=== PATIENT | female | born 1970 | race Caucasian/White ===

== ENCOUNTER 2019-11-27 08:03 | Inpatient (IN) | payer OTHER ==
[~2019-11-27] VITALS: Ht 170.2 cm; Wt 122.5 kg
--- NOTE | 2019-11-27 08:05 | NUR ---
PT BIBRA 102 FROM HOME C/O L KNEE AND ANKLE INJURY, PER PT "I PASSED OUT AND FELL" PT IS AAOX4, NOT IN RESPIRATORY DISTRESS, HOOKED TO CROP DUSTER, KEPT RESTED AND COMFORTABLE, WILL CONTINUE TO MONITOR.
--- NOTE | 2019-11-27 08:10 | NUR ---
PT SEEN AND EXAMINED BY .
[2019-11-27] MEDS ORDERED: ONDANSETRON HCL/PF 4 MG/2 ML VIAL ONE (08:17)
[2019-11-27] MEDS ORDERED: HYDROMORPHONE 1 MG/1 ML DISP.SYRIN ONE ×4 (08:17→11:51)
--- NOTE | 2019-11-27 08:20 | NUR ---
BLOOD DRAWN AND SENT TO LAB.
[2019-11-27 08:30] LABS: BASOPHILS # (AUTO) 0.1 /CMM (0.0-0.2); EOSINOPHILS % (AUTO) 0.9 % (0.0-6.0); HEMATOCRIT 40 % (33-45); HEMOGLOBIN 12.9 g/dL (11.5-14.8); LYMPHOCYTES # (AUTO) 1.4 /CMM (0.8-4.8); LYMPHOCYTES % (AUTO) 15.7 % (20.0-44.0); MEAN CORPUSCULAR HGB CONC 33 g/dl (31.0-36.0); MEAN CORPUSCULAR VOLUME 88 fL (82-100); MONOCYTES # (AUTO) 0.6 /CMM (0.1-1.30); MONOCYTES % (AUTO) 7.1 % (2.0-12.0); NEUTROPHILS # (AUTO) 6.5 /CMM (1.8-8.9); NEUTROPHILS % (AUTO) 75.3 % (43.0-81.0); PLATELET COUNT (AUTO) 167 /CMM (150-450); WHITE BLOOD COUNT (AUTO) 8.7 K/uL (4.3-11.0)
[2019-11-27] MEDS ORDERED: IV NS 0.9% 1,000 ML BAG IV ONE (08:30)
[2019-11-27] MEDS ORDERED: HYDROMORPHONE INJ 2 MG/ML DISP.SYRIN IV ONE (08:30)
[2019-11-27] MEDS ORDERED: ONDANSETRON HCL/PF 4 MG/2 ML VIAL IVP ONE (08:30)
--- NOTE | 2019-11-27 08:31 | NUR ---
[employer] LETTER CARRIER AT BEDSIDE FOR XRAY.
[2019-11-27 08:36] LABS: CALCIUM, SERUM 8.8 mg/dL (8.5-10.1); CARBON DIOXIDE 22 mmol/L (21-32); CHLORIDE 106 mmol/L (98-107); GLUCOSE 115 mg/dL (74-106); POTASSIUM 4.4 mmol/L (3.5-5.1); SODIUM SERUM 139 mmol/L (136-145); UREA NITROGEN, BLOOD 9 mg/dL (7-18)
[2019-11-27] MEDS ORDERED: HYDROMORPHONE 1 MG/1 ML DISP.SYRIN IV ONE ×3 (09:00→12:00)
--- NOTE | 2019-11-27 09:06 | NUR ---
CALLED [facility] [phone] ITS [facility].
[2019-11-27] MEDS ORDERED: HYDR4TAB57 PO (09:23)
[2019-11-27] MEDS ORDERED: CYCL10TA9 PO (09:23)
[2019-11-27] MEDS ORDERED: TOPI200C6 PO (09:23)
[2019-11-27] MEDS ORDERED: VENL37.591 PO (09:23)
[2019-11-27] MEDS ORDERED: ERGO500014 PO (09:23)
[2019-11-27] MEDS ORDERED: INDO75CA3 PO (09:23)
[2019-11-27] MEDS ORDERED: GABA-534 PO (09:23)
[2019-11-27] MEDS ORDERED: TRAZ150T75 PO (09:23)
[2019-11-27] MEDS ORDERED: PROP120C2 PO (09:23)
[2019-11-27] MEDS ORDERED: GABA600T12 PO (09:23)
--- NOTE | 2019-11-27 09:30 | NUR ---
CALLED [facility] [phone] ITS [facility].
--- NOTE | 2019-11-27 09:40 | NUR ---
PT IS WHEELED TO CT SCAN VIA [facility].
--- NOTE | 2019-11-27 09:59 | NUR ---
CECILIA SINGH AT BEDSIDE FOR EVAL.
--- NOTE | 2019-11-27 11:39 | NUR ---
called nursing supervisor assembly and packing requested for med surg bed.
--- NOTE | 2019-11-27 12:13 | NUR ---
324-[address] [facility] [place]
--- NOTE | 2019-11-27 12:19 | NUR ---
REPORT GIVEN TO VICENTA LOPES FOR WALE.
[2019-11-27 12:45] VITALS: BP 113/71
--- NOTE | 2019-11-27 12:56 | NUR ---
RN ADMITTING NOTE Patient arrived from ER, A/O x4, showing of acute distress or SOB, saturating 94-96% on 2L NC. IV line in the right hand #20g is clean and intact, flushing well. Vital signs BP 113/71 HR 64 RR 18 T 98.1. Patient is complaining of 6/10 pain in the left lower leg. Splint and PARKER wrap bandage noted on left lower leg. MD has been notified that patient has arrived on the floor and I asked MD if patient needs gupta catheter insertion. Awaiting for response. Bed is in lowest position, side rails x3 in upright position, call light is within reach, fall safety and aspiration precautions enforced. Will continue with plan of care.
--- NOTE | 2019-11-27 13:44 | NUR ---
RN NOTE Patient is expected to leave for surgery at 1430. Consents have been signed and placed in chart. Spoke with Calvin YADAV from Surgery, she stated that it is up to Dr. Stephens if he decides to insert Galvez Catheter for the patient. Will follow up after patient is back from surgery.
[2019-11-27] MEDS ORDERED: GLYCOPYRROLATE 0.2 MG/ML VIAL ONE (14:34)
[2019-11-27] MEDS ORDERED: ANESTHESIA TRAY IN PYXIS 1 EA TRAY MC ONE (15:19)
[2019-11-27] MEDS ORDERED: BUPIVACAINE 0.5 % PF 150 MG/30 ML VIAL ONE (15:20)
[2019-11-27] MEDS ORDERED: BACITRACIN 50000 UNITS/VIAL ONE ×2 (15:20→16:38)
[2019-11-27] MEDS ORDERED: HYDROMORPHONE INJ 2 MG/ML DISP.SYRIN ONE (15:54)
[2019-11-27] MEDS ORDERED: IV NS 0.9% 1,000 ML IV PRN (16:57)
[2019-11-27] MEDS ORDERED: ACETAMINOPHEN 325 MG TABLET PO PRN (17:00)
[2019-11-27] MEDS ORDERED: Z GUARD REMEDY 2 OZ OINT TP PRN (17:00)
--- NOTE | 2019-11-27 19:14 | NUR ---
RN CLOSING NOTE Patient arrived from surgery at 1915. A/O x2-3, patient dozes in and out of sleep, arousable to touch. When awake, patient is able to respond to questions. Viital signs 112/40, HR 100, T 98.7 O2 96% on 4L NC. Left lower leg splint noted, elevated on pillow. security shift supervisor RN Minerva at the bedside receiving report from OR nurses and change of shift report. No Galvez catheter inserted per Dr. Stephens. Bed is in lowest position, side rails x3 in upright position, call light is within reach, fall, safety, and aspiration precautions enforced. Endorsed to night guard.
--- NOTE | 2019-11-27 19:15 | NUR ---
MS/RN OPENING NOTES: PT. ARRIVED TO THE UNIT VIA GURNEY FROM OR. S/P LEFT TIB ORIF. ACCOMPANIED BY NIC YADAV. PT IS A/OX4. VERY DROWSY YET AROUSABLE WHEN TALKED TO. VERBALLY RESPONSIVE AND ABLE TO MAKE NEEDS KNOWN. ON 2 L OF OXYGEN VIA NC SATURATING AT 95%. NO SOB NOTED, BREATHING EVEN AND UNLABORED. NO S/S OF ACUTE DISTRESS. NO C/O PAIN AT THIS TIME. INITIAL VS TAKEN. 112/40 HR: 100 TEMP: 98. HAS AN ORDER FOR CONTINUOUS PULSE OX MONITORING. CALLED RT DAILY TO BRING IN PULSE OX MACHINE. LEFT EXTREMITY ELEVATED. GOOD CAP REFILL <3. PLACED ON REG. DIET. HOB ELEVATED. IV SITE PRESENT ON THE RIGHT WRIST #20G. SAFETY MEASURES IN PLACE. BED IN LOW, LOCKED POSITION WITH SR UP X2. CALL LIGHT WITHIN REACH. WILL CONTINUE TO MONITOR ACCORDINGLY.
[2019-11-27 19:30] VITALS: BP 112/40
[2019-11-27 20:00] VITALS: BP 96/61
--- NOTE | 2019-11-27 20:00 | NUR ---
MS/RN NOTES: REQUESTED FOR STAT CONTINUOUS PULSE OX. PER RT, "WE DON'T HAVE AN AVAILABLE MACHINE. USE THE VITALS MACHINE FOR NOW". PT IS SATURATING AT 96-97% ON 4L OF OXYGEN VIA NC. AROUSABLE AND VERBALLY RESPONSIVE. VS MACHINE AT BEDSIDE FOR CONTINUOUS PULSE OX.
[2019-11-27 20:30] VITALS: BP 125/72
[2019-11-27 20:41] VITALS: BP_SYST 185; BP_SYST 96; BP_DIAS 113; BP_DIAS 61
[2019-11-27] MEDS: TRAZODONE 50 MG TABLET PO SCH (21:11)
[2019-11-27] MEDS: TOPIRAMATE 100 MG TABLET PO SCH (21:11)
[2019-11-27] MEDS ORDERED: KETOROLAC TROMETHAMINE INJ 30 MG/ML VIAL IV PRN (22:30)
[2019-11-27] MEDS: IV LR 1000 ML 1,000 ML IV PRN (22:36)
--- NOTE | 2019-11-28 | NUR ---
MS/RN NOTES: PT. REFUSED PROPRANOLOL 20 MG PO. EXPLAINED TO PT RISKS AND BENEFITS, STILL INSISTED ON REFUSING. PER PT "I WANNA SLEEP PLEASE" . WILL CONTINUE TO MONITOR. PT IS STABLE VSS.
[2019-11-28] MEDS: CEFAZOLIN 2 GM in IV D5W 100 ML IV SCH ×2 (01:07→04:29)
[2019-11-28] MEDS: ONDANSETRON HCL/PF 4 MG/2 ML VIAL IVP PRN ×3 (03:04→21:15)
--- NOTE | 2019-11-28 03:04 | NUR ---
MS/RN NOTES: PT. STARTED VOMITING. COMPLAINED OF NAUSEA. VSS. ADMINISTERED 4MG ZOFRAN IVP. WILL REASSESS AND CONTINUE MONITORING.
--- NOTE | 2019-11-28 03:54 | NUR ---
MS/RN NOTES: PT. FEELS BETTER NOW. NAUSEA IS GONE. ZOFRAN 4MG EFFECTIVE. WILL CONTINUE TO MONITOR.
[2019-11-28] MEDS: PROPRANOLOL HCL 10 MG TABLET PO SCH ×4 (05:32→17:47)
[2019-11-28 06:48] LABS: BASOPHILS % (AUTO) 0.4 % (0.0-2.0); HEMATOCRIT 36 % (33-45); HEMOGLOBIN 11.8 g/dL (11.5-14.8); LYMPHOCYTES # (AUTO) 0.7 /CMM (0.8-4.8); LYMPHOCYTES % (AUTO) 5.8 % (20.0-44.0); MEAN CORPUSCULAR HGB CONC 33 g/dl (31.0-36.0); MEAN CORPUSCULAR VOLUME 88 fL (82-100); MONOCYTES # (AUTO) 0.5 /CMM (0.1-1.30); MONOCYTES % (AUTO) 4.2 % (2.0-12.0); NEUTROPHILS # (AUTO) 10.3 /CMM (1.8-8.9); NEUTROPHILS % (AUTO) 89.6 % (43.0-81.0); PLATELET COUNT (AUTO) 160 /CMM (150-450); RED BLOOD CELL COUNT(AUTO) 4.11 MIL/uL (4.0-5.2); WHITE BLOOD COUNT (AUTO) 11.5 K/uL (4.3-11.0)
--- NOTE | 2019-11-28 06:52 | NUR ---
MS/RN CLOSING NOTES: PT. IN BED RESTING. REMAINS A/OX4. AROUSABLE WHEN TALKED TO. VERBALLY RESPONSIVE AND ABLE TO MAKE NEEDS KNOWN. ON 2 L OF OXYGEN VIA NC SATURATING AT 97%. NO SOB NOTED, BREATHING EVEN AND UNLABORED. NO S/S OF ACUTE DISTRESS. NO C/O PAIN AT THIS TIME. VSS. ON CONTINUOUS PULSE OX MONITORING. PT. REFUSED SKIN ASSESSMENT. LEFT EXTREMITY MAINTAINED ELEVATED. GOOD CAP REFILL <3. TOLERATING REG. DIET WELL. ABLE TO HELP WITH ADLS. USED BEDPAN. HOB ELEVATED. IV SITE PRESENT ON THE RIGHT WRIST #20G. PAIN MANAGED THROUGH OUT THE SHIFT. ALL NEEDS MET AND RENDERED. KEPT WARM AND DRY. SAFETY MEASURES IN PLACE. BED IN LOW, LOCKED POSITION WITH SR UP X2. CALL LIGHT WITHIN REACH. WILL ENDORSE TO DAY SHIFT RN FOR WALE.
[2019-11-28 07:05] LABS: ALBUMIN 2.9 g/dL (3.4-5.0); CALCIUM, SERUM 8.1 mg/dL (8.5-10.1); CREATININE 0.8 mg/dL (0.6-1.3); MAGNESIUM 1.9 mg/dL (1.8-2.4); PHOSPHORUS 2.8 mg/dL (2.5-4.9)
[2019-11-28 07:33] LABS: BILIRUBIN,TOTAL 0.2 mg/dL (0.2-1.0); TOTAL PROTEIN, SERUM 6.9 g/dL (6.4-8.2)
--- NOTE | 2019-11-28 07:35 | NUR ---
ms rn received on bed, awake,alert,oriented x4, s/p left leg surgery w/ dressing dry and intact, w/ slight swelling, will monitor patient.
[2019-11-28 07:44] LABS: THYROID STIMULATING HORMONE 0.381 uIU/mL (0.358-3.74)
[2019-11-28 08:00] VITALS: BP 113/43
--- NOTE | 2019-11-28 08:40 | NUR ---
ms wan breakfast served,due meds given,tolerated well.
[2019-11-28] MEDS ORDERED: GABAPENTIN 400 MG CAPSULE PO SCH (09:00)
[2019-11-28] MEDS: TOPIRAMATE 100 MG TABLET PO SCH ×2 (09:34→21:04)
[2019-11-28] MEDS: VENLAFAXINE XR 37.5 MG CAP.SR.24H PO SCH (09:35)
[2019-11-28] MEDS: GABAPENTIN 300 MG CAPSULE PO SCH ×3 (09:35→17:45)
[2019-11-28] MEDS: ENOXAPARIN SODIUM 40 MG/0.4 ML DISP.SYRIN SQ SCH (09:37)
[2019-11-28] MEDS: HYDROMORPHONE INJ 2 MG/ML DISP.SYRIN IV PRN ×4 (09:45→22:22)
--- NOTE | 2019-11-28 11:30 | NUR ---
ms rn was seen by remington barry, all needs attended, was having pain meds , will be seen by dr. moscoso for pain management.
[2019-11-28 16:00] VITALS: BP 98/55
--- NOTE | 2019-11-28 16:11 | NUR ---
ms rn on bed, no distress noted.
--- NOTE | 2019-11-28 18:00 | NUR ---
ms rn on bed, no distress noted.
--- NOTE | 2019-11-28 19:10 | NUR ---
MS/RN OPENING NOTES: PT. IN RESTING IN BED, A/OX4. VERBALLY RESPONSIVE AND ABLE TO MAKE NEEDS KNOWN. PER PT "I FEEL MORE AWAKE NOW THAN YESTERDAY BUT I STILL HAVE NAUSEA AND PAIN FROM TIME TO TIME." ON 2 L OF OXYGEN VIA NC SATURATING AT 95%. NO SOB NOTED, BREATHING EVEN AND UNLABORED. NO S/S OF ACUTE DISTRESS. LEFT EXTREMITY ELEVATED. GOOD CAP REFILL <3, PT ABLE TO WIGGLE HER TOES. HOB ELEVATED. IV SITE PRESENT ON THE RIGHT WRIST #20G SL. PT. IS INDEPENDENTLY EATING AND DRINKING. SAFETY MEASURES IN PLACE. BED IN LOW, LOCKED POSITION WITH SR UP X2. CALL LIGHT WITHIN REACH. WILL CONTINUE TO MONITOR ACCORDINGLY.
[2019-11-28 20:00] VITALS: BP 105/64
[2019-11-28 20:29] VITALS: BP 105/64
[2019-11-28] MEDS: TRAZODONE 50 MG TABLET PO SCH (21:04)
[2019-11-28] MEDS ORDERED: ATORVASTATIN 10 MG TABLET PO SCH (22:00)
--- NOTE | 2019-11-28 22:26 | NUR ---
MS/RN NOTES: PT. HAS LEVEL 8 PAIN ON HER LEFT LEG. REQUESTED FOR DILAUDID. VSS. ADMINISTERED 1MG DILAUDID IVP. WILL CONTINUE TO MONITOR.
[2019-11-28 23:00] VITALS: BP 111/70
--- NOTE | 2019-11-29 | NUR ---
MS/RN NOTES: PT. REFUSED PROPRANOLOL 20MG. EXPLAINED THE RISKS AND BENEFITS, PT STILL REFUSED. VSS STABLE. WILL CONTINUE TO MONITOR.
[2019-11-29] MEDS: IV LR 1000 ML 1,000 ML IV PRN (00:42)
[2019-11-29] MEDS: HYDROMORPHONE INJ 2 MG/ML DISP.SYRIN IV PRN ×2 (03:46→09:30)
--- NOTE | 2019-11-29 03:50 | NUR ---
MS/RN NOTES: PT. HAS LEVEL 8 PAIN ON HER LEFT LEG. VSS 112/76 HR:86. REQUESTED FOR DILAUDID. ADMINISTERED 1MG DILAUDID IVP. LEFT EXTREMITY ELEVATED. GOOD CAP REFILL. ABLE TO WIGGLE TOES. WILL CONTINUE TO MONITOR.
[2019-11-29 04:32] VITALS: BP 112/68
[2019-11-29] MEDS: PROPRANOLOL HCL 10 MG TABLET PO SCH ×3 (05:55→12:14)
--- NOTE | 2019-11-29 05:55 | NUR ---
MS/RN NOTES: PT. REFUSED PROPRANOLOL 20MG DUE AT 0600. EXPLAINED THE RISKS AND BENEFITS, PT STILL REFUSED. VSS STABLE. WILL CONTINUE TO MONITOR.
--- NOTE | 2019-11-29 07:28 | NUR ---
MS/RN CLOSING NOTES: PT. IN BED RESTING. REMAINS A/OX4. VERBALLY RESPONSIVE AND ABLE TO MAKE NEEDS KNOWN. ON 2 L OF OXYGEN VIA NC SATURATING AT 97%. NO SOB NOTED, BREATHING EVEN AND UNLABORED. NO S/S OF ACUTE DISTRESS. NO C/O PAIN AT THIS TIME. VSS. LEFT EXTREMITY MAINTAINED ELEVATED. GOOD CAP REFILL <3. TOLERATING REG. DIET WELL. ABLE TO HELP WITH ADLS. USED BEDPAN. HOB ELEVATED. IV SITE PRESENT ON THE RIGHT WRIST #20G. PAIN MANAGED THROUGH OUT THE SHIFT. ALL NEEDS MET AND RENDERED. KEPT WARM AND DRY. SAFETY MEASURES IN PLACE. BED IN LOW, LOCKED POSITION WITH SR UP X2. CALL LIGHT WITHIN REACH. WILL ENDORSE TO DAY SHIFT RN FOR WALE.
[2019-11-29 08:00] VITALS: BP 118/67
[2019-11-29] MEDS: ONDANSETRON HCL/PF 4 MG/2 ML VIAL IVP PRN ×2 (08:16→14:32)
[2019-11-29] MEDS: GABAPENTIN 300 MG CAPSULE PO SCH ×2 (09:23→12:13)
[2019-11-29] MEDS: VENLAFAXINE XR 37.5 MG CAP.SR.24H PO SCH (09:23)
[2019-11-29] MEDS: TOPIRAMATE 100 MG TABLET PO SCH (09:23)
[2019-11-29] MEDS: ENOXAPARIN SODIUM 40 MG/0.4 ML DISP.SYRIN SQ SCH (09:26)
[2019-11-29] MEDS ORDERED: ATOR10TA PO (13:57)
[2019-11-29] MEDS ORDERED: MELO-107 PO (13:57)
[2019-11-29 16:00] VITALS: BP 108/65
--- NOTE | 2019-11-29 17:00 | NUR ---
Patient cleared for d/c to home with home health. Patient awake alert and oriented x3, VS are stable and within baseline, afebrile. Breathing unlabored and even on room air with saturation above 96%. Patient refused skin inspection multiple times.Dressing on left leg intact and patent. Patient s/p surgery by dr. Kerr ; information for f/u appointment provided. Patient provided with a walker, bedside commode will be delivered tomorrow to pt's home. Patient educated and d/c instructions provided, patient verbalized understanding. IV lines and wrist bands removed. Patient sighed d/c instructions and valuable form and all belongings with the patient. Patient safely transferred to [facility] via wheelchair accompanied by Rupinder FELICIANO and assisted to car.
== END 2019-11-29 17:30 | disposition home health service (06) | DRG 493 ==
LOC: ER 08:11 → MED 12:21
PROVIDERS: ADMIT Nurse Practitioner Acute Care; ATTEND Nurse Practitioner Acute Care
PROC: 0QSH04Z Reposition Left Tibia with Internal Fixation Device, Open Approach (ICD-10-PCS; principal; 2019-11-27)
DX: S82.252A Displaced comminuted fracture of shaft of left tibia, initial encounter for closed fracture (principal); Z68.41 Body mass index [BMI] 40.0-44.9, adult; S82.422A Displaced transverse fracture of shaft of left fibula, initial encounter for closed fracture; X58.XXXA Exposure to other specified factors, initial encounter; Y93.9 Activity, unspecified; Y92.9 Unspecified place or not applicable; L40.50 Arthropathic psoriasis, unspecified; I10 Essential (primary) hypertension; G89.4 Chronic pain syndrome; F32.9 Major depressive disorder, single episode, unspecified; W18.30XA Fall on same level, unspecified, initial encounter; Z88.5 Allergy status to narcotic agent; Z79.899 Other long term (current) drug therapy; S92.352A Displaced fracture of fifth metatarsal bone, left foot, initial encounter for closed fracture; S82.52XA Displaced fracture of medial malleolus of left tibia, initial encounter for closed fracture; E66.9 Obesity, unspecified; E78.5 Hyperlipidemia, unspecified; G62.9 Polyneuropathy, unspecified; Z96.82 Presence of neurostimulator
CPT/HCPCS: 36415; 71045-TC; 73564-TC; 73590-TC; 73610-TC; 73700-TC; 80048-TC; 80053-TC; 80061-TC; 83735-TC; 84100-TC; 84443-TC; 84484-TC; 84702-TC; 85025-TC; 85730-TC; 86850-TC; 87081-TC; 93307-TC; 97116-TC; 97530-TC; A4217; C1713; G0378; J0690; J1100; J1170; J1650; J1885; J2405; J2704; J2765; J3490; J7030; J7060; J7120

== ENCOUNTER 2020-01-23 14:45 | Outpatient (CLI) | payer OTHER ==
[~2020-01-23 14:45] MED LIST: ATOR10TA PO; CYCL10TA9 PO; ERGO500014 PO; GABA-534 PO; GABA600T12 PO; HYDR4TAB57 PO; INDO75CA3 PO; MELO-107 PO; PROP120C2 PO; TOPI200C6 PO; TRAZ150T75 PO; VENL37.591 PO
[2020-01-23 16:02] LABS: BASOPHILS # (AUTO) 0.1 /CMM (0.0-0.2); BASOPHILS % (AUTO) 1.1 % (0.0-2.0); EOSINOPHILS % (AUTO) 1.3 % (0.0-6.0); HEMATOCRIT 39 % (33-45); HEMOGLOBIN 12.5 g/dL (11.5-14.8); LYMPHOCYTES # (AUTO) 1.9 /CMM (0.8-4.8); LYMPHOCYTES % (AUTO) 25.9 % (20.0-44.0); MEAN CORPUSCULAR HGB CONC 32 g/dl (31.0-36.0); MEAN CORPUSCULAR VOLUME 88 fL (82-100); MONOCYTES # (AUTO) 0.4 /CMM (0.1-1.30); NEUTROPHILS # (AUTO) 4.7 /CMM (1.8-8.9); NEUTROPHILS % (AUTO) 65.7 % (43.0-81.0); PLATELET COUNT (AUTO) 172 /CMM (150-450); RED BLOOD CELL COUNT(AUTO) 4.39 MIL/uL (4.0-5.2); WHITE BLOOD COUNT (AUTO) 7.2 K/uL (4.3-11.0)
== END 2020-01-23 23:59 | disposition home or self-care (01) ==
LOC: LAB 14:45
PROVIDERS: ATTEND Specialist
DX: S82.242D Displaced spiral fracture of shaft of left tibia, subsequent encounter for closed fracture with routine healing (principal); X58.XXXD Exposure to other specified factors, subsequent encounter
CPT/HCPCS: 36415; 85025-TC; 85652-TC; 86140-TC

== ENCOUNTER 2020-01-25 11:09 | Outpatient (CLI) | payer OTHER | END 2020-01-25 23:59 | disposition home or self-care (01) | LOC: CARD 11:09 | PROVIDERS: ATTEND Specialist | DX: I82.403 Acute embolism and thrombosis of unspecified deep veins of lower extremity, bilateral (principal) | CPT/HCPCS: 93970-TC ==